=== PATIENT | male | born 2000 | race African-American/Black ===

== ENCOUNTER → 2019-03-06 | Outpatient (CLI) | payer OTHER ==
--- NOTE | 2019-03-06 13:54 | Diagnostic Imaging Report ---
INDICATION: Pain. Four views of the left wrist were obtained. FINDINGS: The alignment is normal. There is no fracture or dislocation. Soft tissues are unremarkable. IMPRESSION: No focal abnormality in the left wrist. Dictated by: Dictated on workstation # [id number]
== END ==
LOC: RAD FS 13:32
PROVIDERS: ATTEND Nurse Practitioner
DX: M25.532 Pain in left wrist (principal)
CPT/HCPCS: 73110

== ENCOUNTER → 2019-03-21 | Outpatient (CLI) | payer OTHER ==
--- NOTE | 2019-03-21 16:48 | Diagnostic Imaging Report ---
INDICATION: Fall. COMPARISON: 03/06/2019. FINDINGS: Three views of the left wrist demonstrate no acute fracture or dislocation. There are no focal osseous lesions. No avascular necrosis is seen. The visualized soft tissue structures are unremarkable. The pronator fat pad is not displaced. There are no radio opaque foreign bodies. IMPRESSION: 1. No acute fracture or dislocation in the left wrist. Dictated by: Dictated on workstation # [id number]
== END ==
LOC: RAD FS 11:41
PROVIDERS: ATTEND Nurse Practitioner
DX: S63.592A Other specified sprain of left wrist, initial encounter (principal); W19.XXXA Unspecified fall, initial encounter
CPT/HCPCS: 73110

== ENCOUNTER → 2019-07-25 | Outpatient (CLI) | payer OTHER ==
--- NOTE | 2019-07-25 15:22 | Diagnostic Imaging Report ---
INDICATION: Right hand swelling. TIME OF EXAM: 1:39 PM FINDINGS: Three views of the right hand were obtained. The metacarpals and phalanges are intact. No fractures are seen. Carpus is unremarkable. There is an old ununited ulnar styloid fracture. IMPRESSION: No acute bony abnormality is detected. Dictated by: Dictated on workstation # [id number]
== END ==
LOC: RAD FS 13:44
PROVIDERS: ATTEND Nurse Practitioner
DX: M79.89 Other specified soft tissue disorders (principal)
CPT/HCPCS: 73130